=== PATIENT | male | born 1970 | race Caucasian/White ===

== ENCOUNTER 2016-05-30 11:24 | Emergency (ER) | payer OTHER ==
[2016-05-30 12:24] LABS: URINE BILIRUBIN NEGATIVE (NEGATIVE); URINE BLOOD TRACE (NEGATIVE); URINE GLUCOSE (UA) NORMAL (NORMAL); URINE KETONE NEGATIVE (NEGATIVE); URINE LEUKOCYTE ESTERASE TRACE (NEGATIVE); URINE NITRATE NEGATIVE (NEGATIVE); URINE PROTEIN NEGATIVE (NEGATIVE); UROBILINOGEN NORMAL mg/dL (<1.0)
[2016-05-30 12:33] LABS: URINE BACTERIA 1+ (NONE SEEN); URINE SQUAMOUS EPITHELIAL CELL 0-10 /[HPF] (NONE SEEN)
== END 2016-05-30 13:55 | disposition home or self-care (01) ==
LOC: ER 11:24
PROVIDERS: Emergency Medicine
DX: N30.90 Cystitis, unspecified without hematuria (principal); I10 Essential (primary) hypertension; Z98.52 Vasectomy status; Z79.899 Other long term (current) drug therapy; Z88.5 Allergy status to narcotic agent
CPT/HCPCS: 81001; 87086; 87186; 87400; 96372; 99284-25